=== PATIENT | female | born 1975 | race Caucasian/White ===

== ENCOUNTER 2018-07-12 18:16 | Emergency (ER) | payer OTHER ==
[~2018-07-12] VITALS: Ht 160 cm; Wt 115.7 kg
--- NOTE | 2018-07-12 19:07 | ED.ADGEN ---
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 Today, while working she reinjured her right wrist noting 7/10 severity pain and inability to move her right thumb. She notes no direct trauma. Review of Systems Review of Systems Constitutional: Denies fever or chills Eyes: Denies change in visual acuity, redness, or eye pain HENT: Denies nasal congestion or sore throat Respiratory: Denies cough or shortness of breath Cardiovascular: No additional information not addressed in HPI GI: Denies abdominal pain, nausea, vomiting, bloody stools or diarrhea : Denies dysuria or hematuria Musculoskeletal: Denies back pain with right hand and wrist pain Integument: Denies rash or skin lesions Neurologic: Denies headache, focal weakness or sensory changes Endocrine: Denies polyuria or polydipsia All other systems were reviewed and found to be within normal limits, except as documented in this note. Allergies Allergies Allergies Coded Allergies Type Severity Reaction Last Updated Verified No Known Drug Allergies 07/12/18 No Physical Exam Physical Exam Constitutional: Well developed, well nourished, no acute distress, non-toxic appearance. HENT: Normocephalic, atraumatic, bilateral external ears normal, oropharynx moist, no oral exudates, nose normal. Eyes: PERRLA, EOMI, conjunctiva normal, no discharge. Neck: Normal range of motion, no tenderness, supple, no stridor. Cardiovascular:Heart rate regular rhythm, no murmur Lungs & Thorax: Bilateral breath sounds clear to auscultation Abdomen: Bowel sounds normal, soft, no tenderness, no masses, no pulsatile masses. Skin: Warm, dry, no erythema, no rash. Back: No tenderness, no CVA tenderness. Extremities: No tenderness, no cyanosis, no clubbing, ROM intact, no edema. Right hand with marked tenderness at the first MCP joint extending into the right wrist. Patient has snuffbox tenderness to palpation. Range of motion is decreased, though thumb finger apposition is intact. Distal sensations intact to light touch and position sense. Distal capillary refill is less than 2 seconds. Radial and ulnar pulses are 2+. There is no swelling noted. Neurologic: Alert and oriented X 3, normal motor function, normal sensory function, no focal deficits noted. Psychologic: Affect normal, judgement normal, mood normal. Current Patient Data Vital Signs Vital Signs Date Time Temp Pulse Resp B/P (MAP) Pulse Ox O2 Delivery O2 Flow Rate FiO2 07/12/18 20:23 79 104/44 (64) 98 07/12/18 19:23 18 07/12/18 18:53 Room Air 07/12/18 18:24 98.3 EKG EKG [] Radiology/Procedures Radiology/Procedures [address] [address] IMAGING REPORT Signed PATIENT: YRIS CARRILLO ACCOUNT: [id number] : 1975 LOCATION: ER AGE: 43 SEX: F EXAM STATUS: DEP ER ORD. PHYSICIAN: ELISA LOONEY MD REASON: Injury 07/08/18, severe pain to right thumb radiating into palm PROCEDURE: HAND RIGHT 3V Indication: Injury. Severe pain to the right thumb. TECHNIQUE: 3 views of the right hand COMPARISON: None FINDINGS: No acute fracture or dislocation. No soft tissue abnormality. No arthritic changes. IMPRESSION: No acute findings. INDICATION: Injury. TECHNIQUE: 3 views of the right wrist COMPARISON: None FINDINGS: No acute fracture or dislocation. No soft tissue abnormality. No arthritic changes. IMPRESSION: No acute fractures. Electronically signed by: Saul Britt DO (07/12/2018 10:10 PM) [facility] DICTATED AND SIGNED BY: SAUL BRITT DO DATE: 07/12/182207 CC: SURYA BOX; ELISA LOONEY MD ~ [address] [address] IMAGING REPORT Signed PATIENT: YRIS CARRILLO ACCOUNT: [id number] : 1975 LOCATION: ER AGE: 43 SEX: F EXAM STATUS: DEP ER ORD. PHYSICIAN: ELISA LOONYE MD REASON: Injury 07/08/18, severe pain to right thumb radiating into palm PROCEDURE: WRIST 3V RIGHT Indication: Injury. Severe pain to the right thumb. TECHNIQUE: 3 views of the right hand COMPARISON: None FINDINGS: No acute fracture or dislocation. No soft tissue abnormality. No arthritic changes. IMPRESSION: No acute findings. INDICATION: Injury. TECHNIQUE: 3 views of the right wrist COMPARISON: None FINDINGS: No acute fracture or dislocation. No soft tissue abnormality. No arthritic changes. IMPRESSION: No acute fractures. Electronically signed by: Saul Britt DO (07/12/2018 10:10 PM) [facility] DICTATED AND SIGNED BY: SAUL BRITT DO DATE: 07/12/182207 CC: SURYA BOX; ELISA LOONEY MD ~ Course & Med Decision Making Course & Med Decision Making Emergency department course Patient presents with right hand and wrist injury DDx- sprain, fracture, dislocation, sprain, strain The patient was stable it the ED. Right hand and wrist x-rays were unremarkable. Patient likely has right hand and right thumb sprain. Patient was paced in spica splint and will follow-up with orthopedics. Final Impression Final Impression Clinical Impression Right hand sprain Right thumb sprain Dragon Disclaimer Radhames Disclaimer This electronic medical record was generated, in whole or in part, using a voice recognition dictation system. Departure Departure: Impression: Primary Impression: Sprain of right hand Additional Impression: Sprain of right thumb Disposition: 01 HOME, SELF-CARE Condition: STABLE Patient Instructions: Hand Injuries, [id number], Wrist Splint, [id number], Wrist Sprain with Rehab-Sports[facility] Additional Instructions: Follow-up with Dr. Chan Hogue Address: [address] [place] [address] [address], [place] [address] Call tomorrow for an appointment If you develop worse pain, swelling, numbness, weakness return to the emergency department immediately Scripts Ibuprofen (IBUPROFEN) 800 Mg Tablet 800 MG PO TIDWMEALHC for 5 Days, #20 TAB Prov: ELISA LOONEY MD 07/12/18 ELISA LOONEY MD Jul 12, 2018 19:07
[2018-07-12] MEDS ORDERED: IBUP800T19 PO (20:18)
[2018-07-12 20:23] VITALS: BP 104/44
--- NOTE | 2018-07-12 22:13 | RAD ---
Indication: Injury. Severe pain to the right thumb. TECHNIQUE: 3 views of the right hand COMPARISON: None FINDINGS: No acute fracture or dislocation. No soft tissue abnormality. No arthritic changes. IMPRESSION: No acute findings. INDICATION: Injury. TECHNIQUE: 3 views of the right wrist COMPARISON: None FINDINGS: No acute fracture or dislocation. No soft tissue abnormality. No arthritic changes. IMPRESSION: No acute fractures. Electronically signed by: Saul Britt DO (07/12/2018 10:10 PM) [facility]
--- NOTE | 2018-07-12 22:13 | RAD ---
Indication: Injury. Severe pain to the right thumb. TECHNIQUE: 3 views of the right hand COMPARISON: None FINDINGS: No acute fracture or dislocation. No soft tissue abnormality. No arthritic changes. IMPRESSION: No acute findings. INDICATION: Injury. TECHNIQUE: 3 views of the right wrist COMPARISON: None FINDINGS: No acute fracture or dislocation. No soft tissue abnormality. No arthritic changes. IMPRESSION: No acute fractures. Electronically signed by: Saul Britt DO (07/12/2018 10:10 PM) [facility]
== END 2018-07-12 20:35 | disposition home or self-care (01) ==
LOC: ER 18:16
DX: S63.601A Unspecified sprain of right thumb, initial encounter (principal); X50.9XXA Other and unspecified overexertion or strenuous movements or postures, initial encounter; Y93.89 Activity, other specified; Y92.89 Other specified places as the place of occurrence of the external cause; Y99.0 Civilian activity done for income or pay
CPT/HCPCS: 29125; 73110; 73130; 99284